=== PATIENT | male | born 1955 | race Caucasian/White ===

== ENCOUNTER 2021-09-08 08:12 | Day surgery (SDC) | payer BC ==
[2021-09-06 15:38] VITALS: BMI 31.7
[~2021-09-08 08:12] MED LIST: LACTATED RINGERS 1,000 ML IV SCH
[2021-09-08 08:51] VITALS: TEMP 98.3
[2021-09-08 09:03] LABS: Glucose,Whole Blood 177 mg/dL (75-99)
[2021-09-08] MEDS ORDERED: PROPOFOL 10 MG/ML 20 ML VIAL IV ONE (09:13)
--- NOTE | 2021-09-08 09:30 | P.PCN ---
Date of Procedure: 09/08/21 Preoperative Diagnosis: Screening Postoperative Diagnosis: Transverse colon polyp Descending colon polyp Procedure(s) Performed: Colonoscopy with hot snare polypectomy Anesthesia: MAC Surgeon: Maciej Krishna Pathology: other (Transverse colon polyp, descending colon polyp) Condition: stable Disposition: same day Indications for Procedure: 65-year-old male presents for screening colonoscopy. Risks, benefits and alternatives were provided to the patient. He did provide consent prior to attending the endoscopy suite. Operative Findings: Transverse colon polyp Descending colon polyp Description of Procedure: The patient was brought to the endoscopy suite and placed in left lateral decubitus position and adequate sedation was achieved using conscious sedation. A digital rectal exam was performed and internal hemorrhoids palpated. An endoscope was then placed in the rectum and advanced to the cecum as identified by landmarks including the appendiceal orifice and the ileocecal valve. The prep was fair, however there was still some solid stool in the descending and sigmoid colon that did result in a somewhat obstructed view. The colonoscope was then slowly withdrawn, examining for any mucosal abnormalities. The cecum, ascending, transverse, descending and sigmoid colon were visualized. No large neoplastic lesion was noted. 2 polyps were found. One was noted in the transverse colon. This was removed with hot snare polypectomy. Hemostasis was maintained. An additional polyp was noted in the descending colon. This was also removed with hot snare polypectomy. Hemostasis was maintained. No obvious diverticulosis was noted. Retroflexion was performed in the rectum and internal hemorrhoids were visible. Excess air was removed, the colonoscope withdrawn and the procedure terminated. The patient was then transferred to the recovery unit in stable condition. Repeat colonoscopy should be performed in 1 year due to self obstructed view of the descending and sigmoid colon and finding of polyps.
[2021-09-08 09:47] VITALS: BP 135/87; PULSE 98; RESP 16
== END 2021-09-08 10:11 | disposition home or self-care (01) ==
LOC: ORWHC2ENDO 08:12
PROVIDERS: ATTEND Surgery
DX: Z12.11 Encounter for screening for malignant neoplasm of colon (principal); D12.3 Benign neoplasm of transverse colon; D12.4 Benign neoplasm of descending colon; I10 Essential (primary) hypertension; E11.9 Type 2 diabetes mellitus without complications; E07.9 Disorder of thyroid, unspecified; M19.90 Unspecified osteoarthritis, unspecified site; K21.9 Gastro-esophageal reflux disease without esophagitis; Z79.84 Long term (current) use of oral hypoglycemic drugs; Z79.890 Hormone replacement therapy
CPT/HCPCS: 45385; 88305; J2704